=== PATIENT | female | born 1965 | race Two or more races ===

== ENCOUNTER → 2022-02-28 | Outpatient (CLI) | payer OTHER ==
[~2022-02-28] MED LIST: CONTRAST GIVEN. MC PRN; HYDR-3164 PO; IOHEXOL 240 MG/ML 50ML VIAL. PO ONE; IOHEXOL 300 MG/ML 100ML VIAL. IV ONE; OMEP20TA91 PO
--- NOTE | 2022-03-01 11:53 | RAD ---
CT abdomen pelvis with contrast dated 02/28/2022. COMPARISON: None. INDICATION: Epigastric pain and weight loss TECHNIQUE: Contiguous axial imaging the abdomen pelvis performed after the administration of 75 cc Omnipaque 300 . One or more of the following individualized dose reduction techniques were utilized for this examinat ion: 1. Automated exposure control 2. Adjustment of the mA and/or kV according to patient size 3. Use of iterative reconstruction technique FINDINGS: Limited images of the lung bases are clear. Heart size within normal limits. No pleural or pericardia l effusion. Liver, spleen, pancreas, adrenal glands and kidneys are unremarkable. No hydronephrosis. Tiny hypoden sity at the midpole right kidney, likely cyst or other benign lesion. Gallbladder surgically absent Partially opacified GI tract normal in caliber and contour. No focal bowel wall thickening. Appendix is partially visualized. No inflammatory changes in the right lower quadrant. No ascites or lymphaden opathy. Scattered diverticula throughout colon. Abdominal aorta normal in caliber. Images of pelvis show nondistended urinary bladder. Uterus and adnexa are unremarkable. No significan t free fluid or pelvic adenopathy. Bone window show no acute findings. Mild multilevel spondylosis. IMPRESSION: 1. No acute abnormality of abdomen or pelvis. 2. Diverticulosis with no evidence of acute diverticulitis. 3. Status post cholecystectomy. Electronically signed by: Miller Lam MD (03/01/2022 11:51 AM) [facility]
== END ==
LOC: CT 07:58 → MERGE 07:58
PROVIDERS: ATTEND Nurse Practitioner Primary Care
DX: K57.30 Diverticulosis of large intestine without perforation or abscess without bleeding (principal); R11.2 Nausea with vomiting, unspecified; R63.4 Abnormal weight loss; M47.817 Spondylosis without myelopathy or radiculopathy, lumbosacral region; Z90.49 Acquired absence of other specified parts of digestive tract
CPT/HCPCS: 74177; Q9966; Q9967